=== PATIENT | male | born 1990 | race African-American/Black ===

== ENCOUNTER 2020-09-29 23:00 | Emergency (ER) | payer SELFPAY ==
[~2020-09-29] VITALS: Ht 167.6 cm; Wt 77.1 kg
[2020-09-29 23:00] VITALS: BP_SYST 130
--- NOTE | 2020-09-29 23:02 | NUR ---
Patient to ER bed 3 to gown for evaluation. Side rails up.
--- NOTE | 2020-09-29 23:02 | NUR ---
Patient BIB by ALS from [facility]. C/O Possible alcohol toxication x today. Per reported, witness found patient laid down near the pool, BS 114, vital sign stable, Awake, confuse, mumbling, denies pain, no respiratory distress, place patient on engine monitor and pluse ox.
--- NOTE | 2020-09-29 23:07 | NUR ---
ER at bedside examining patient.
[2020-09-29] MEDS ORDERED: NACL 0.9% 2,000 ML IV ONE (23:15)
--- NOTE | 2020-09-29 23:21 | NUR ---
Called Poison control, recommendation to observe 6 hours, Check Alcohol level, Osmolality serum, Lactic Acid / staff -spoke with Dr. Lopez.
--- NOTE | 2020-09-29 23:25 | NUR ---
# 20 gauge angiocath placed to LAC by ASHLEY Kingston. Use of asceptic technique. Opsite placed over site. Blood return noted. Blood for lab drawn from site. Flushed with 10 cc of normal saline. No evidence of infiltration noted. Patient tolerated well.
--- NOTE | 2020-09-29 23:50 | NUR ---
RT at bedside to drawn blood of ABG.
[2020-09-29 23:53] LABS: BASOPHILS # (AUTO) 0.2 K/uL (0.0-0.2); BASOPHILS % (AUTO) 2.3 % (0.0-2.0); EOSINOPHILS % (AUTO) 0.6 % (0.0-4.0); HEMATOCRIT 43.2 % (36-54); HEMOGLOBIN 14.3 g/dL (14.0-18.0); LYMPHOCYTES % (AUTO) 22.3 % (20.5-51.5); MEAN CORPUSCULAR HEMOGLOBIN 30 pg (27-31); MEAN CORPUSCULAR HGB CONC 33 % (32-36); MEAN CORPUSCULAR VOLUME 90 fL (79.0-98.0); MONOCYTES # (AUTO) 0.7 K/uL (0.0-1.0); MONOCYTES % (AUTO) 7.5 % (1.7-9.3); NEUTROPHILS % (AUTO) 67.3 % (40.0-70.0); PLATELET COUNT (AUTO) 180 K/uL (130-430); RED BLOOD CELL COUNT(AUTO) 4.79 MIL/uL (4.2-6.2); RED CELL DISTRIBUTION WIDTH 13.2 % (9.0-15.0); WHITE BLOOD COUNT (AUTO) 8.9 K/uL (4.8-10.8)
[2020-09-29 23:56] LABS: ANION GAP 11 (5-15); CALCIUM 8.8 mg/dL (8.4-11.0); CHLORIDE 104 mmol/L (98-107); CREATININE 1.09 mg/dL (0.55-1.30); GLUCOSE 123 mg/dL (70-99); POTASSIUM 4.2 mmol/L (3.5-5.1); SODIUM SERUM 142 mmol/L (136-145); UREA NITROGEN, BLOOD 12 mg/dL (8-21)
--- NOTE | 2020-09-29 23:58 | NUR ---
X-ray at bedside.
[2020-09-30] LABS: GFR AFRICAN AMERICAN 101 mL/min (>90)
[2020-09-30 00:04] LABS: ALANINE AMINOTRANSFERASE 229 U/L (12-78); ALBUMIN 3.9 g/dL (3.4-4.8); ALCOHOL, BLOOD 314 mg/dL (<10); ASPARTATE AMINOTRANSFERASE 88 U/L (10-37); TOTAL BILIRUBIN 0.1 mg/dL (0.0-1.0)
[2020-09-30 00:06] LABS: ACETAMINOPHEN < 1 ug/mL (1-30)
--- NOTE | 2020-09-30 00:24 | NUR ---
Patient transported to radiology via gurney, accompanied by RT and EMT.
--- NOTE | 2020-09-30 01:08 | NUR ---
Spoke with poison control, recommended to re-peat Chem Panel, Alconol level , Liver Function test. Dr. Beltran notified.
--- NOTE | 2020-09-30 02:16 | NUR ---
assisted patient to restroom.
--- NOTE | 2020-09-30 02:27 | NUR ---
Covid-19 swabs and send to lab.
--- NOTE | 2020-09-30 03:25 | NUR ---
Patient resting quietly. No acute distress noted. Vital signs within normal range.
--- NOTE | 2020-09-30 04:36 | NUR ---
Patient resting quietly. No acute distress noted. Vital signs within normal range.
--- NOTE | 2020-09-30 05:25 | NUR ---
Assisted patient to restroom, Patient able to walk, denies dizziness.
--- NOTE | 2020-09-30 05:36 | NUR ---
Blood for labwork drawn from pipe wrapping machine operator. Patient tolerated well.
--- NOTE | 2020-09-30 05:40 | NUR ---
D/C IV line, no bleeding.
[2020-09-30 05:55] LABS: CALCIUM 8.1 mg/dL (8.4-11.0); CREATININE 0.98 mg/dL (0.55-1.30); POTASSIUM 4.4 mmol/L (3.5-5.1)
[2020-09-30 06:01] LABS: ALBUMIN 3.7 g/dL (3.4-4.8); TOTAL BILIRUBIN 0.2 mg/dL (0.0-1.0)
--- NOTE | 2020-09-30 06:11 | NUR ---
Spoke with patient, patient states " did not recall ingest hand specimen preparation assistant."
--- NOTE | 2020-09-30 07:35 | NUR ---
Care of patient endose to ASHLEY Cunningham.
[2020-09-30 08:40] VITALS: BP_SYST 122
== END 2020-09-30 08:42 | disposition home or self-care (01) ==
LOC: SED 23:00
DX: F10.129 Alcohol abuse with intoxication, unspecified (principal); Z20.828 Contact with and (suspected) exposure to other viral communicable diseases
CPT/HCPCS: 36415; 36600; 70450; 71045; 76376; 80053; 82803; 83605; 83930; 84484; 85025; 87426; 93005; 96360; 96361; 99285; G0480; G0481; G0482; J7030